=== PATIENT | female | born 2000 | race African-American/Black ===

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

== ENCOUNTER 2021-04-17 20:15 | Observation (INO) | payer MEDICAID ==
[~2021-04-17] VITALS: Ht 165.1 cm; Wt 71.2 kg
[2021-04-17 22:17] LABS: Urine Bacteria NONE SEEN /hpf (None Seen); Urine Blood Negative /uL (Negative); Urine Specific Gravity 1.005 (1.001-1.035); Urine WBC <1 /hpf (0 - 5)
[2021-04-17 22:32] LABS: Alcohol, Urine < 3.0 mg/dL (0-10); Amphetamine Screen, Urine NEGATIVE (NEGATIVE); Barbiturate Scree,Urine NEGATIVE (NEGATIVE); Benzodiazephine Screen, Urine NEGATIVE (NEGATIVE); Cannabinoid Screen, Urine NEGATIVE (NEGATIVE); Cocaine Screen, Urine NEGATIVE (NEGATIVE); Opiate Scree,Urine NEGATIVE (NEGATIVE); Phencyclidine Screen, Urine NEGATIVE (NEGATIVE)
[2021-04-17] MEDS: TERBUTALINE SULFATE 1 MG/ML 1ML VIAL SC PRN (23:05)
[2021-04-18] MEDS: TERBUTALINE SULFATE 1 MG/ML 1ML VIAL SC PRN
== END 2021-04-18 01:00 | disposition home or self-care (01) ==
LOC: LDRP 20:15
PROVIDERS: ADMIT Obstetrics & Gynecology; ATTEND Obstetrics & Gynecology
DX: O26.892 Other specified pregnancy related conditions, second trimester (principal); R10.2 Pelvic and perineal pain; R51.9 Headache, unspecified; R10.30 Lower abdominal pain, unspecified; O36.8120 Decreased fetal movements, second trimester, not applicable or unspecified; O99.342 Other mental disorders complicating pregnancy, second trimester; F41.9 Anxiety disorder, unspecified; Z3A.25 25 weeks gestation of pregnancy; Z91.040 Latex allergy status
CPT/HCPCS: 59025; 76805; 80307; 81001; 81002; 94760; 96372; G0378; J3105